=== PATIENT | male | born 1940 | race Caucasian/White ===

== ENCOUNTER 2025-01-23 14:13 | Emergency (ER) | payer BC, MEDICARE, OTHER ==
[~2025-01-23] VITALS: Ht 167.6 cm; Wt 68.0 kg
[2025-01-23 14:16] VITALS: BP 156/82; PULSE 65; RESP 18; TEMP 36.9; O2SAT 100
[2025-01-23 15:29] LABS: BASOPHILS % 0.7 % (0.0-2.0); HEMATOCRIT. 39.5 % (42.0-52.0); HEMOGLOBIN. 13.2 g/dL (14.0-18.0); LYMPHOCYTES % 11.9 % (20.0-50.0); MEAN CORPUSCULAR HEMOGLOBIN 30.6 pg (28.0-32.0); MEAN CORPUSCULAR HGB CONC 33.6 g/dL (31.0-37.0); MEAN CORPUSCULAR VOLUME 91.3 fL (80.0-94.0); MEAN PLATELET VOLUME 8.4 fl (7.4-10.4); MONOCYTES % 6.7 % (2.0-8.0); NEUTROPHILS % 78.7 % (40.0-76.0); PLATELET 201 x1000/uL (130-400); RED BLOOD CELL COUNT 4.33 mill/uL (4.7-6.1); RED CELL DISTRIBUTION WIDTH 13.3 % (11.6-14.6); WHITE BLOOD COUNT 8.5 x1000/uL (4.5-11.0)
[2025-01-23 15:35] LABS: POTASSIUM 4.8 mEq/L (3.5-5.1)
[2025-01-23 15:37] LABS: CALCIUM 10.1 mg/dL (8.7-10.4)
[2025-01-23 15:41] LABS: CREATININE 1.5 mg/dL (0.6-1.3)
== END 2025-01-23 17:15 | disposition home or self-care (01) ==
LOC: ER 14:13
DX: E78.00 Pure hypercholesterolemia, unspecified (principal); I10 Essential (primary) hypertension; K40.90 Unilateral inguinal hernia, without obstruction or gangrene, not specified as recurrent
CPT/HCPCS: 36415; 74176; 80048; 85025; 99284